=== PATIENT | female | born 1990 | race Two or more races ===

== ENCOUNTER → 2024-06-23 | Outpatient (CLI) | payer MEDICAID, SELFPAY ==
--- NOTE | 2024-06-23 11:45 | XR_ITS ---
Examination: Abdomen sonogram, complete Date and time of exam: June 23, 2024 1133 hours INDICATIONS: Epigastric pain beginning 2 days ago. Technique: Multiple real-time grayscale transabdominal sonographic images of the abdomen have been obtained. Findings: Normal gallbladder Normal common bile duct 0.2 cm Pancreatic head 2.1 cm Aorta not enlarged Liver 15.3 cm fatty infiltration lobular contour no focal liver lesions Normal hepatopedal portal venous flow Patent IVC Right kidney 10.1 x 5.5 x 4.9 cm cortex 1.3 cm Left kidney 11.0 x 5.5 x 4.9 cm cortex 1.3 cm Mild renal parenchymal scar formation Spleen 11.4 cm IMPRESSION: Normal gallbladder Normal common bile duct Fatty liver suspect primary hepatocellular disease
== END | disposition home or self-care (01) ==
PROVIDERS: PCP Family Medicine; Referring Provider Physician Assistant; Visit Provider Physician Assistant
DX: K76.0 Fatty (change of) liver, not elsewhere classified (principal)
CPT/HCPCS: 76700

== ENCOUNTER → 2024-10-07 | Outpatient (CLI) | payer MEDICAID, SELFPAY | END | disposition home or self-care (01) | LOC: CDIM 11:41 | PROVIDERS: PCP Physician Assistant; Referring Provider Obstetrics & Gynecology; Visit Provider Obstetrics & Gynecology | DX: O20.0 Threatened abortion (principal) ==

== ENCOUNTER 2025-02-25 00:29 | Emergency (ER) | payer MEDICAID, SELFPAY ==
[2025-02-25 00:29] VITALS: BMI 35.5
[2025-02-25 01:10] VITALS: BP 116/79; PULSE 110; RESP 19; TEMP 37.6; O2SAT 97
--- NOTE | 2025-02-25 01:20 | PD.EDURI ---
Upper Respiratory Inf. RME/HPI General Chief Complaint: Fever Stated Complaint: FEVER/ CONGESTION Time Seen by Provider: 02/25/25 01:16 Arrival date/time: 02/25/25 00:29 34F with no significant PMH presents to ED with 1 day of cough, fevers/chills, and body aches. Patient is also about 30 weeks , but denies vaginal bleeding and ab pain. Limitations: no limitations Related Data Home Medications ?Medication ?Instructions ?Recorded ?Confirmed aspirin 81 mg tablet 81 mg PO QDAY 09/05/20 12/29/20 prenat.vits,derek,rhc-onbd-caflp 1 tab PO QDAY 09/05/20 12/29/20 Previous Rx's ?Medication ?Instructions ?Recorded hydrocodone 5 mg-acetaminophen 300 1 tab PO Q8H PRN pain #7 tabs 01/01/21 mg tablet ibuprofen 100 mg tablet 200 mg (2 x 100 mg) PO Q6H PRN 01/01/21 pain #14 tabs nirmatrelvir 300 mg (150 mg See Rx Instructions PO .COMPLEX 02/25/25 x2)-ritonavir 100 mg tablet,dose #30 tabs pack (Paxlovid) Allergies Allergy/AdvReac Type Severity Reaction Status Date / Time No Known Allergies Allergy Verified 07/14/22 19:16 Review of Systems Review of Systems Systems Reviewed: All systems reviewed, normal except as documented Constitutional Constitutional: Reports system reviewed and no additional complaints, except as documented, Reports as per HPI, Reports body ache(s), Reports chills, Reports fever(s) and Denies headache(s) ENT Ears, Nose, Mouth, and Throat: Denies disequilibrium and Denies headache(s) Cardiovascular Cardiovascular: Reports system reviewed and no additional complaints, except as documented, Denies chest pain and Denies dyspnea Respiratory Respiratory: Reports system reviewed and no additional complaints, except as documented, Reports as per HPI, Reports cough and Denies dyspnea Gastrointestinal Gastrointestinal: Reports system reviewed and no additional complaints, except as documented, Denies abdominal pain, Denies nausea and Denies vomiting Neurologic Neurologic: Reports system reviewed and no additional complaints, except as documented, Denies confusion, Denies disequilibrium and Denies headache(s) Psychiatric Psychiatric: Denies confusion Past Medical History Past Medical History NEUROLOGIC: Negative Neurological Disorders CARDIAC: Negative Cardiac Disorders or Congestive Heart Failure RESPIRATORY: Positive Asthma (LAST USED INHALER 08/2023); Negative Chronic Obstructive Pulmonary Disease (COPD) GASTROINTESTINAL: Negative Gastrointestinal Disorders or Hepatitis GENITOURINARY: Negative Genitourinary Disorders or Renal Disease REPRODUCTIVE: Positive Previous Pregnancies (2 SAB); Negative Endometriosis, Pelvic Inflammatory Disease or Uterine Prolapse MUSCULOSKELETAL: Negative Musculoskeletal Disorders ENDOCRINE: Negative Endocrine Disorders, Diabetes Mellitus Type 1 or Diabetes Mellitus Type 2 HEMATOLOGIC: Negative Blood Disorders PSYCHO/SOCIAL: Positive Anxiety OTHER HISTORY: Positive Chicken Pox (AT 6YRS OLD); Negative Hospitalization, Autoimmune Disease, Down Syndrome, Developmental Delay, Shingles, Falls, Blood Transfusions, Blood Transfusion Reaction, Anesthesia Reactions, Organ Transplant, Chemotherapy, Radiation Therapy, Hyperbaric Therapy, MRSA, VRSA, Vancomycin-Resistant Enterococci, Human Immunodeficiency Virus (HIV), Measles, Mumps, Rubella ([place] Measles), Pertussis, Clostridium Difficile or Cancer Family History FAMILY HISTORY: Positive Family Cardiac Disorders (MOTHER/GRANDMOTHER-HTN), Family Cancer (BREAST) and Family Surgery (GALLBLADDER REMOVAL); Negative Family Psychiatric Problems, Family Respiratory Disorders, Family Gastrointestinal Problems or Family Anesthesia Reaction Surgical History SURGICAL: Negative Organ Transplant Social History SMOKING STATUS: Never smoker ED Exam General Limitations: Present no limitations General appearance: Present alert and in no apparent distress Head Head exam: Present atraumatic Eye Eye exam: Present normal appearance, PERRL and EOMI ENT ENT exam: Present normal exam, normal oropharynx and mucous membranes moist Neck Neck exam: Present normal inspection, full ROM and trachea midline Chest Chest inspection: Present normal inspection and symmetric chest wall rise Respiratory Respiratory exam: Present normal lung sounds bilaterally Cardiovascular Cardiovascular exam: Present regular rate, normal rhythm and normal heart sounds Abdominal Exam Abdominal exam: Present soft and normal bowel sounds Extremities Exam Extremities exam: Present normal inspection and full ROM Back Exam Back exam: Present normal inspection and full ROM Neurological Exam Neurological exam: Present alert, oriented X3 and CN II-XII intact Psychiatric Psychiatric exam: Present normal affect and normal mood Skin Skin exam: Present warm, dry, intact and normal color Course Quality Measures none Orders Category Date Time Status Bedside COVID-19 Antigen Test NOW Care 02/25/25 00:32 Active Bedside Influenza A&B Antigen Test NOW Care 02/25/25 00:32 Active Vital Signs Vital signs: Vital Signs Temperature 99.7 F 02/25/25 01:10 Pulse Rate 110 H 02/25/25 01:10 Respiratory Rate 19 02/25/25 01:10 Blood Pressure 116/79 02/25/25 01:10 Pulse Oximetry (%) 97 02/25/25 01:10 Oxygen Delivery Method Room Air 02/25/25 01:10 O2 at 97% on RA and WNLs Upper Respiratory Infection MDM Narrative MDM Narrative:: 34F with no significant PMH presents to ED with 1 day of cough, fevers/chills, and body aches. Patient is also about 30 weeks , but denies vaginal bleeding and ab pain. Physical exam reveals clear oropharynx and lungs. Normal WOB. Patient is afebrile, calm, and alert. COVID+. Will give Paxlovid given status. Patient data External records reviewed:: [facility] previous records Clinical information provided by:: patient Social determinants that could affect healthcare access:: none Patient has the following chronic illnesses:: none How is presenting disease/condition affected by chronic disease/condition?: no chronic disease Evaluation data The following diagnostics were reviewed and interpreted by me:: lab results Lab and/or radiology exams considered but not ordered:: ordered Interpretation Summary: above Medications / Prescriptions Medications or Prescriptions considered but not ordered:: not ordered Medication administrations:: n/a Consultations Consultation(s) initiated? (list below): No Diagnosis Upper Respiratory Differential Diagnosis: upper respiratory infection, croup, otitis media, sinusitis, viral infection, bronchitis, influenza and pharyngitis Most likely diagnosis given after review of the tests above:: COVID Admission Indicated Admission indicated?: not indicated Admission Request Was there a request for admission?: No Disposition Plan Disposition Plan: Discharge Discharge Attestation Discharge Attestation: The patient and all family members were given an opportunity to ask questions and understood the discharge instructions. Discharge instructions specifically effects, indications for sooner follow up or return to the emergency department, and the expected course of current diagnosis. Patient condition: Stable Discharge Plan Plan Patient Disposition: HOME (Self Care) Discharge Disposition comment: Stable Prescriptions/Referrals Prescriptions/Med Rec: New Paxlovid 300 mg (150 mg x 2)-100 mg tablets,dose pack See Rx Instructions .ROUTE .COMPLEX Qty: 30 0RF Rx Instructions: take TWO 150 mg tablets of nirmatrelvir with ONE 100 mg tablet of ritonavir twice daily for 5 days No Action Vitamin Tablet 1 tab PO QDAY aspirin 81 mg Tablet 81 mg PO QDAY hydrocodone-acetaminophen 5-300 mg tablet 1 tab PO Q8H MDD 4 PRN (Reason: pain) Qty: 7 0RF ibuprofen 100 mg tablet 200 mg PO Q6H MDD 4 PRN (Reason: pain) Qty: 14 0RF Referrals: Temporary Provider,ED [Primary Care Provider] - In 1 week Problem List Clinical Impression: COVID-19 Patient/Caregiver Discharge Instructions Education Materials: COVID-19 Home Care Additional Instructions: Please follow-up with PCP within 24-48 hours and return immediately if symptoms worsen. Tylenol can be used for fever/pain control. Benadryl is good for cough, congestion, and sleep. Keep hydrated. Advance diet as tolerated. Print Language: Chinese Stand Alone Forms: Patient Portal Info Letter PA/CRIMINAL INTELLIGENCE ANALYST Supervising Physician FAWN/RANDA Supervising Physician: Dr. Copeland
== END 2025-02-25 01:23 | disposition home or self-care (01) ==
LOC: SERX 01:23
PROVIDERS: Emergency Provider Emergency Medicine; PCP Physician Assistant
DX: O98.513 Other viral diseases complicating pregnancy, third trimester (principal); U07.1 COVID-19; Z3A.30 30 weeks gestation of pregnancy
CPT/HCPCS: 99282

== ENCOUNTER 2025-04-20 05:42 | Inpatient (IN) | payer MEDICAID, SELFPAY ==
[2025-04-17 09:35] LABS: Basophils # (Auto) 0.0 Thou/mm3 (0.0-0.2); Basophils % (Auto) 0 % (0-2.5); Eosinophils # (Auto) 0.0 Thou/mm3 (0.0-0.5); Eosinophils % (Auto) 1 % (0-10); Hematocrit 33.7 % (36.0-46.0); Hemoglobin 11.0 g/dL (12.0-16.0); Immature Granulocytes Auto 0.04 Thou/mm3 (0.00-0.00); Lymphocytes # (Auto) 1.3 Thou/mm3 (1.0-4.8); Lymphocytes % (Auto) 21 % (10-50); Mean Corpuscular HGB Conc 32.6 g/dl (31.0-37.0); Mean Corpuscular Hemoglobin 27.0 pg (25.0-35.0); Mean Corpuscular Volume 83 fL (80-100); Monocytes # (Auto) 0.4 Thou/mm3 (0.0-0.8); Monocytes % (Auto) 6 % (0-12); Neutrophils # (Auto) 4.4 Thou/mm3 (1.8-7.7); Neutrophils % (Auto) 72 % (37-80); Nucleated Red Blood Cell # 0.00 Thou/mm3 (0.00-0.00); Nucleated Red Blood Cell % 0 /100 WBC (0); Platelet Count 202 Thou/mm3 (140-440); RDW Standard Deviation 46.3 fL (36.4-46.3); Red Blood Count 4.07 Miln/mm3 (4.00-5.20); White Blood Count 6.1 Thou/mm3 (3.6-11.0)
[2025-04-17 09:55] LABS: INR 0.9 (0.9-1.3); Partial Thromboplastin Time 24.2 Seconds (22.0-36.0); Prothrombin Time 9.8 Seconds (9.0-12.2)
[2025-04-17 09:56] LABS: Alanine Aminotransferase 18 U/L (10-49); Albumin, Serum 3.8 gm/dL (3.5-5.0); Albumin/Globulin Ratio 1.7 (1.2-2.2); Alkaline Phosphatase 144 U/L (46-116); Anion Gap 10 (7-16); Aspartate Amino Transferase 22 U/L (0-34); BUN/Creatinine Ratio 9 Ratio (12-20); Bilirubin,Total 0.7 mg/dL (0.3-1.2); Blood Urea Nitrogen 6 mg/dL (9-23); Calcium 8.9 mg/dL (8.3-10.6); Calcium (Corrected) 9.1 mg/dL (8.5-10.1); Carbon Dioxide 23.4 mMol/L (20.0-31.0); Chloride 106 mMol/L (98-107); Creatinine (Component) 0.7 mg/dL (0.6-1.3); Globulin 2.2 gm/dL (2.3-3.5); Glucose 81 mg/dL (74-106); Osmolality,Calculated 274 (275-295); Potassium 4.1 mMol/L (3.4-5.1); Sodium 139 mMol/L (136-145); Total Protein 6.0 gm/dL (5.7-8.2); eGFR > 60 See Note
[2025-04-17 10:13] LABS: Syphilis Nonreactive (Nonreactive)
--- NOTE | 2025-04-18 13:17 | ESHP_ITS ---
RE: SOFYA MATAMOROS : 1990 DATE OF ADMISSION: 04/20/2025 HISTORY OF PRESENT ILLNESS: This is a 34-year-old 4, para 1-0-2-1 with due date of 04/25/2025 with intrauterine at 39 weeks and 2 days on 04/20/2025, who presents for repeat delivery. The patient's care was uncomplicated. She denies any leaking or bleeding. She reports normal movement. She has occasional contractions. ALLERGIES: NO KNOWN DRUG ALLERGIES. MEDICATIONS: 1. multivitamin 1 p.o. daily. 2. Aspirin 81 mg 1 p.o. daily. PAST MEDICAL HISTORY: Recurrent loss. SOCIAL HISTORY: She denies any alcohol, drug use, or smoking. PAST MEDICAL HISTORY: Denies. FAMILY HISTORY: Denies. OB HISTORY: In 2013, 6-week spontaneous AB, no D and C. In 2014, 7-week spontaneous AB, no D and C. In 12/2020, 40-week delivery, 7 pound 1 ounce female. No complications. PAST SURGICAL HISTORY: delivery in 12/2020. REVIEW OF SYSTEMS: She denies any chest pain, palpitations, cough, fever, shortness of breath, flank pain, or lower extremity pain or swelling. PHYSICAL EXAMINATION: VITAL SIGNS: Blood pressure 122/76, heart rate 88, respirations 18, temperature 98.2. HEENT: Oropharynx and sclerae are clear. LUNGS: Clear to auscultation bilaterally. HEART: Regular rate and rhythm. ABDOMEN: Gravid, term size. Old Pfannenstiel scar noted. EXTREMITIES: Nontender. SKIN: No gross rashes or lesions. NEUROLOGIC: No focal deficit. ASSESSMENT AND PLAN: Intrauterine at 39 weeks and 2 days, previous delivery, elects repeat delivery. PLAN: Repeat delivery. Informed consent was obtained. The patient made aware of the risk, complications, alternatives, and benefits of the proposed procedure and she agrees. DT: 11::19 TT: 13:15:00 Ref: [id number] - TID: [id number] MTDD
[2025-04-20] VITALS (19 sets, daily range): BP systolic 0–125; BP diastolic 0–79; PULSE 64–108; RESP 13–20; TEMP 36.3–37.2; O2SAT 96–100; BMI 36.3
--- NOTE | 2025-04-20 07:12 | ESOP_ITS ---
Operative Note - CORE SUCKER Procedure Date of procedure: 04/20/25 Procedure Performed: Repeat low-transverse section via Fenistil skin incision Indication: Intrauterine at 39 weeks and 2 days Previous delivery elects repeat delivery Pre-Op diagnosis: Intrauterine at 39 weeks and 2 days Previous delivery elects repeat delivery Post-Op diagnosis: Intrauterine at 39 weeks and 2 days Previous delivery elects repeat delivery Anesthesia type: Spinal Procedure description: After proper informed consent was obtained and the patient was made aware of the risks, complications, alternatives and benefits of the proposed procedure she was taken to the operating room where she underwent induction of spinal anesthesia. She was prepped and draped in the usual sterile fashion. A timeout was performed.? A Pfannenstiel skin incision was made with the scalpel and carried through to the underlying layer of fascia with the Bovie. The fascia was nicked in the midline incision and the incision was extended bilaterally with the Bovie. The inferior aspect of the fascial incision was grasped with Zafar clamps elevated and the underlying rectus muscle dissected off with the Bovie. The superior aspect the fascial incision was grasped with Zafar clamps elevated and the underlying rectus muscle dissected off with the Bovie. The rectus muscles were in the midline. The peritoneum was grasped between 2 Leahy clamps and entered sharply with the Metzenbaum scissors. The peritoneum was extended superiorly and inferiorly with good visualization of the bladder. The vesicouterine peritoneum was incised transversely and the bladder flap created digitally. A [place] blade was inserted. A low transverse incision was made in the uterus with a scapel and the incision was extended digitally. The 's head delivered and the mouth and nose were suctioned with the bulb suction. The shoulder and body delivered atraumatically. The cord was clamped after 30 second delayed cord clamping and the cord was cut.? The infant was handed off to the waiting Pediatric staff, cord blood was collected for lab testing. The placenta was removed complete and intact. The uterus was exteriorized and cleared of all clots and debris. The uterine incision was closed with #1-0 chromic catgut suture in a running interlocking fashion. A second layer of the same suture was used to imbricate the first layer and obtain excellent hemostasis. The vesicouterine peritoneum was closed with 2-0 chromic catgut suture in a running fashion. The firm uterus was returned to the abdomen. The gutters were cleared of all clots and debris. The peritoneum was closed with 0 chromic catgut suture in running fashion. The rectus muscle was closed with 0 chromic catgut suture. The fascia was closed with 0 Vicryl beginning at each angle and ending in the center in a running fashion. The subcutaneous tissue was irrigated with warmed normal saline solution and found to be hemostatic. The subcutaneous tissue was closed with 2-0 chromic catgut suture in a running fashion. The skin was closed with 4-0 Monocryl. A Dermabond Prineo dressing was applied and a sterile pressure dressing was applied.? She tolerated the procedure well. Counts were correct. I discussed with the patient the nature of her condition, intraoperative findings and expectation for recovery all? questions answered. Findings: Live male infant Apgars see RN notes Weight see RN notes Placenta removed complete and intact Amniotic fluid clear Adenomyosis of the uterus Endometriosis posterior uterus and uterosacral ligaments. Complications: none Surgical staff Anesthestist: Mann Ramirez, Surgeon Kandace Stevens [employer] Operation Date: 04/20/25 07:45 <No data on this case meets the specified criteria> Diagnosis Discharge Diagnosis (1) delivery delivered: Status: Acute Problem List Completed Was Problem List Reviewed/Reconciled?: Yes
[2025-04-20] MEDS: RINGERS LACTATED 1000 ML 1,000 ML 100 ML IV ×2 (07:15→21:11)
[2025-04-20] MEDS: ceFAZolin/D5W 2 GM IV 2 GM/100 ML BAG IV (07:15)
[2025-04-20] MEDS: FAMOTIDINE INJ 10 MG/ML VIAL 2 ML 20 MG IV (07:16)
[2025-04-20 07:33] LABS: Hepatitis B Surface Antigen Non Reactive (Non React); Rubella, IgG Antibody Reactive (Immune)
--- NOTE | 2025-04-20 07:37 | PD.LDDS ---
DS: Providers Provider Date of admission: 04/20/25 05:42 Primary care physician: Alanna Upton PA-C Admitting Provider: Trav Ramirez MD Attending Provider on Admission: Trav Ramirez MD Attending Provider on DC: Trav Ramirez MD Discharging Provider: Trav Ramirez MD DS: Diagnosis Discharge Diagnosis (1) delivery delivered: Status: Acute (2) Adenomyosis of the uterus: Status: Acute (3) Endometriosis: Status: Acute Problem List Completed Was Problem List Reviewed/Reconciled?: Yes Summary/Hosp Course Peripartum Data Procedures: Procedures Operation Date: 04/20/25 07:45 <No data on this case meets the specified criteria> Time Spent with Patient Time attestation: Total time spent providing and/or coordinating discharge services: Exam Vital Signs Temp Pulse Resp BP Pulse Ox 97.9 F 94 18 125/77 98 04/20/25 06:03 04/20/25 06:03 04/20/25 06:03 04/20/25 06:03 04/20/25 06:03 Discharge Plan Plan Patient Disposition: HOME (Self Care) Patient condition on transfer: Stable Prescriptions/Referrals Prescriptions/Med Rec: No Action Vitamin Tablet 1 tab PO QDAY Referrals: Alanna Upton PA-C [Primary Care Provider] Patient/Caregiver Discharge Instructions Discharge Activity: activity as tolerated Other Discharge Activity Instructions:: Follow up office 1 week. She already has a Rx for [place]. Education Materials: C Section Dc Print Language: Macedonian Stand Alone Forms: Yue Award Info., Patient Portal Info Letter Planned Discharge Date 04/22/25
--- NOTE | 2025-04-20 08:35 | PC.NURSE ---
1000ml pitocin iv bag accounted by anesthesia before leaving OR to room 466
[2025-04-20] MEDS: KETOROLAC INJ 30 MG/ML VIAL IVP ×2 (09:33→18:35)
--- NOTE | 2025-04-20 10:15 | CHAP ---
Patient was visited by he Spiritual Care Volunteer who prayed for her. (Volunteer was on he floor from c 9:30-10:15)
[2025-04-20] MEDS: DOCUSATE SOD 100 MG CAPSULE PO (10:53)
[2025-04-20] MEDS: ONDANSETRON INJ 2 MG/ML INJ 2 ML 4 MG IVP (12:21)
[2025-04-20] MEDS: OXYTOCIN in NS 20 units 20 UNIT/1,000 ML BAG 125 UNIT IV (13:31)
--- NOTE | 2025-04-20 15:57 | OBDSUM_ITS ---
Data (Sims) Data : 4 Term: 0 : 0 Livin Abortions: Spontaneous & Theraputic: 2 Delivery Data (Sims) Labor Data Induction/Augmentation Agent: None ROM date: 04/20/25 ROM time: :55 Amniotic membrane rupture type: Artificial Amniotic fluid description: Blood Tinged Delivery Data EDC: 04/25/25 EDC calculated by:: LMP/early US confirmation [place] delivery date: 04/20/25 [place] delivery time: Gestational age (weeks): 39 Gestational age (days): 2 Placenta delivery date: 04/20/25 Placenta delivery time: Delivered by: Trav Ramirez Delivery nurse: Huber Estrada RN [place] nurse: Valeria Nieto RN Early Childhood Assistant at delivery: No Support person(s) at delivery: fob Delivery Method Delivery method: Low Transverse Presentation: Vertex position: OA Anesthesia Type Anesthesia Type: Spinal Anesthesia type: Spinal Placenta Placenta delivery description: Manual Removal Cord blood sent to lab: Yes cord blood collection: Cord Blood Type Episiotomy Episiotomy description: None EBL Estimated blood loss (ml): 700 Umbilical Cord cord description: 3 Vessels Additional Procedures None Complications Complications: None [place] Data (Sims) [place] Data order: 1 's gender: Male Identification band number: [id number]
[2025-04-20 17:48] LABS: Basophils # (Auto) 0.0 Thou/mm3 (0.0-0.2); Basophils % (Auto) 0 % (0-2.5); Eosinophils # (Auto) 0.0 Thou/mm3 (0.0-0.5); Eosinophils % (Auto) 0 % (0-10); Hematocrit 27.6 % (36.0-46.0); Hemoglobin 9.1 g/dL (12.0-16.0); Immature Granulocytes Auto 0.03 Thou/mm3 (0.00-0.00); Lymphocytes # (Auto) 1.2 Thou/mm3 (1.0-4.8); Lymphocytes % (Auto) 12 % (10-50); Mean Corpuscular HGB Conc 33.0 g/dl (31.0-37.0); Mean Corpuscular Hemoglobin 27.3 pg (25.0-35.0); Mean Corpuscular Volume 83 fL (80-100); Monocytes # (Auto) 0.5 Thou/mm3 (0.0-0.8); Monocytes % (Auto) 5 % (0-12); Neutrophils # (Auto) 8.6 Thou/mm3 (1.8-7.7); Neutrophils % (Auto) 83 % (37-80); Nucleated Red Blood Cell # 0.00 Thou/mm3 (0.00-0.00); Nucleated Red Blood Cell % 0 /100 WBC (0); Platelet Count 148 Thou/mm3 (140-440); RDW Standard Deviation 46.0 fL (36.4-46.3); Red Blood Count 3.33 Miln/mm3 (4.00-5.20); White Blood Count 10.4 Thou/mm3 (3.6-11.0)
[2025-04-21 03:30] VITALS: BP 97/62; PULSE 93; RESP 18; TEMP 36.9; O2SAT 96
[2025-04-21] MEDS: IBUPROFEN TAB 400 MG TABLET 800 MG PO ×3 (03:43→20:15)
--- NOTE | 2025-04-21 07:31 | PD.LDPPPRG ---
Subjective Subjective Interval history: Patient denies any primary complaint. She is voiding and ambulating and tolerating a regular diet. She is passing flatus. She denies any excessive vaginal bleeding. She denies any dizziness or lightheadedness. She denies any chest pain palpitation shortness of breath or lower extremity pain. Exam Vital Signs Temp Pulse Resp BP Pulse Ox O2 Del Method 98.5 F 93 18 97/62 96 Room Air 04/21/25 03:30 04/21/25 03:30 04/21/25 03:30 04/21/25 03:30 04/21/25 03:30 04/21/25 03:30 Routine Respiratory Exam Comments: Clear to auscultation bilaterally Routine Cardiovascular Exam Comments: Regular rate and rhythm Routine Abdominal Exam Comments: Dressing dry and intact fundus is firm Routine Extremities Exam Comments: Nontender or edema Objective Labs 04/20/25 17:33 04/17/25 09:11 Labs: Laboratory Results - last 24 hr 04/20/25 04/20/25 04/20/25 06:10 08:03 17:33 WBC 10.4 D RBC 3.33 L Hgb 9.1 L Hct 27.6 L MCV 83 MCH 27.3 MCHC 33.0 RDW Std Deviation 46.0 Plt Count 148 D Neut % (Auto) 83 H Lymph % (Auto) 12 Gilchrist % (Auto) 5 Eos % (Auto) 0 Baso % (Auto) 0 Neut # (Auto) 8.6 H Lymph # (Auto) 1.2 Gilchrist # (Auto) 0.5 Eos # (Auto) 0.0 Baso # (Auto) 0.0 Immature Gran # (Auto) 0.03 H Absolute Nucleated RBC 0.00 Immature Gran % 0 Nucleated RBC % 0 Hep Bs Antigen Non Reactive Rubella IgG Antibody Reactive (Immune) Blood Type O Positive Antibody Screen NEGATIVE Crossmatch See Detail Blood Bank Wristband ID Yes Impressions Impression: Postop day #1 status post delivery Remove dressing DC IV Encourage ambulation support Possible discharge home tomorrow Assessment & Plan Problem List (1) delivery delivered: Status: Acute Time Spent With Patient Time: Total time spent is greater than 50% in coordination of care (as documented) at patient's floor/unit and/or counseling patient:
[2025-04-21 08:10] VITALS: BP 97/57; PULSE 75; RESP 18; TEMP 36.9; O2SAT 96
[2025-04-21] MEDS: DOCUSATE SOD 100 MG CAPSULE PO (08:21)
[2025-04-21] MEDS: ENOXAPARIN SOD INJ 40 MG/0.4 ML SYRINGE SC (08:21)
[2025-04-21] MEDS: HYDROcodone/APAP 5/325 TABLET 1 TAB PO ×2 (08:21→17:42)
[2025-04-21 15:22] VITALS: BP 107/70; PULSE 77; RESP 16; TEMP 36.4; O2SAT 98
[2025-04-21 20:00] VITALS: BP 102/67; PULSE 76; RESP 18; TEMP 36.8; O2SAT 98
[2025-04-22] MEDS: HYDROcodone/APAP 5/325 TABLET 1 TAB PO ×2 (03:26→08:01)
[2025-04-22 03:58] VITALS: BP 102/58; PULSE 80; RESP 14; TEMP 36.8; O2SAT 97
--- NOTE | 2025-04-22 07:30 | ESPR_ITS ---
RE: SOFYA MATAMOROS : 1990 DATE OF SERVICE: 04/22/2025 SUBJECTIVE: Postop day #2. Patient denies any problem or complaints. She is voiding, she is ambulating, she is tolerating diet, she is passing flatus. She denies any excessive vaginal bleeding. She denies any dizziness or lightheadedness. She denies any chest pain, palpitations, shortness of breath, or lower extremity pain. OBJECTIVE: Vital Signs: Blood pressure is 102/58, heart rate 80, respirations 14, temperature is 98.2, pulse ox is 97% on room air. Lungs: Clear to auscultation bilaterally. Heart: Regular rate and rhythm. Abdomen: Incision clean and intact, fundus is firm. Extremities: Nontender. ASSESSMENT: Postoperative day #2 status post delivery. PLAN: Discharge home. Discharge instructions given. Follow up in the office in 1 week. DT: 07:15:19 TT: 07:28:00 Ref: [id number] - TID: [id number]
[2025-04-22 07:50] VITALS: BP 101/69; PULSE 89; RESP 16; TEMP 36.7
[2025-04-22] MEDS: SIMETHICONE 80 MG CHEW PO (08:01)
[2025-04-22] MEDS: DOCUSATE SOD 100 MG CAPSULE PO (08:01)
--- NOTE | 2025-04-22 08:41 | CHAP ---
Patient was visited by a Spiritual Care Volunteer on 04/21/2025 between 0900 and 1130 and received comfort, encouragement and/or prayer. Also, a blessing was given to and family.
[2025-04-22] MEDS: ENOXAPARIN SOD INJ 40 MG/0.4 ML SYRINGE SC (08:56)
[2025-04-22] MEDS: Milk Of Magnesia Susp 30 ML UDC PO (09:05)
[2025-04-22] MEDS: IBUPROFEN TAB 400 MG TABLET 800 MG PO (11:29)
== END 2025-04-22 12:50 | disposition home or self-care (01) | DRG 540 ==
LOC: S4SX 07:11 → S4NX 08:04
PROVIDERS: Admitting Provider Specialist; PCP Physician Assistant; Visit Provider Specialist
PROC: 10D00Z1 Extraction of Products of Conception, Low, Open Approach (ICD-10-PCS; CPT 59514; principal; 2025-04-20 07:30)
DX: O34.211 Maternal care for low transverse scar from previous cesarean delivery (principal); Z3A.39 39 weeks gestation of pregnancy; N80.03 Adenomyosis of the uterus; Z37.0 Single live birth; O99.892 Other specified diseases and conditions complicating childbirth
CPT/HCPCS: 36415; 80053; 85025; 85610; 85730; 86762; 86780; 86850; 86900; 86901; 86923; 87340; A4217; A4314; A4649; J0689; J1650; J1885; J2250; J2274; J2371; J2405; J2590; J3490; J7120; S0191; A9270; J1596; J2270